=== PATIENT | female | born 2000 | race Caucasian/White ===

== ENCOUNTER 2023-03-16 17:31 | Emergency (ER) | payer MEDICAID ==
[~2023-03-16] VITALS: Ht 144.8 cm; Wt 68.0 kg
[2023-03-16 17:44] VITALS: BP 134/92; O2SAT 100
[2023-03-16 20:29] VITALS: PULSE 94; RESP 16; TEMP 98.7
== END 2023-03-16 20:31 | disposition home or self-care (01) ==
LOC: ER 17:35
DX: S67.02XA Crushing injury of left thumb, initial encounter (principal); W22.8XXA Striking against or struck by other objects, initial encounter; Y93.89 Activity, other specified; Y92.89 Other specified places as the place of occurrence of the external cause; Y99.8 Other external cause status
CPT/HCPCS: 11740; 73120; 99284

== ENCOUNTER 2024-09-09 11:04 | Emergency (ER) | payer MEDICAID, OTHER ==
[~2024-09-09] VITALS: Ht 149.9 cm; Wt 64.0 kg
[2024-09-09 11:10] VITALS: BP 135/77; PULSE 89; RESP 18; TEMP 98.7; O2SAT 99
== END 2024-09-09 14:03 | disposition home or self-care (01) ==
LOC: ER 11:04
DX: R05.9 Cough, unspecified (principal); R04.2 Hemoptysis
CPT/HCPCS: 71045; 99283